=== PATIENT | female | born 1940 | race Caucasian/White ===

== ENCOUNTER 2016-10-18 15:46 | Inpatient (IN) | payer OTHER ==
[~2016-10-18] VITALS: Ht 154.9 cm; Wt 118.4 kg
--- NOTE | ~2016-10-18 | PLAN ---
[facility] [place] [address] REHAB UNIT PLAN OF CARE Name: LEATHA JAIMES Room #: 510-P ADM IN M.R.#: [id number] Admission: 10/18/16 Attend Phys: López Gomez MD Discharge: Date of : 40 Report #: [id number] THIS REPORT FOR: //name// CC: López Dominguezothy Oskar The patient is seen back today in followup. She is in no distress. Temperature 98, pulse 75, respirations 24, and blood pressure 153/69. The patient continues to need significant O2, currently 8 liters. She does not have any calf swelling. We are working with her in therapies. Transfers are standby assistance. She is ambulating 12-20 feet contact guard assistance without a device. In occupational therapy, upper body dressing's supervision, lower body is min assist. We are working on gradually improving her strength and endurance. ASSESSMENT: 1. Pulmonary rehabilitation. 2. Chronic obstructive pulmonary disease exacerbation. 3. Exogenous obesity. 4. Acute respiratory failure, superimposed on chronic respiratory failure. 5. Bronchitis. 6. Functional mobility and activities of daily living deficits. PLAN: The overall plan of care is based on the preadmission screen, post-admission physician evaluation and information garnered from therapy assessments. 1. Estimated length of stay is probably at least 7-10 days and likely longer as warranted. A lot of it depends upon her medical stability issues and pulmonary medicine involvement. 2. Medical prognosis is reasonably good. 3. Anticipated interventions includes the interdisciplinary acute inpatient rehabilitation program. 4. Anticipated functional outcomes would be for the patient to become modified independent with transfers, mobility and ADLs with the hopes of having return back to the home setting. Ideally, she will further improve as well from the pulmonary perspective. 5. Discharge destination would be back to the home setting where she lives in a house alone. There is a son and aggnrdyn-vq-zcm the area. 6. Expected therapy by discipline includes PT and OT 1 and 1-1/2 hours per day. Each five days a week throughout the duration of the acute inpatient rehabilitation stay. <ELECTRONICALLY SIGNED> By: López Gomez MD 10/27/16 1539 1443 [id number] López Gomez MD /nt
--- NOTE | ~2016-10-18 | H ---
[facility] [place] [address] [place] [address] HISTORY AND PHYSICAL Name: LEATHA JAIMES Room #: 510-P [facility] IN M.R.#: [id number] Admission: 10/18/16 Attend Phys: López Gomez MD Discharge: Date of : 40 Report #: [id number] THIS REPORT FOR: //name// CC: López Schmitt DATE OF SERVICE: 10/19/2016 HISTORY OF PRESENT ILLNESS: The patient is a 76-year-old white female originally admitted with increased shortness of air, was noted to have COPD exacerbation with bronchitis, acute respiratory failure superimposed on chronic respiratory insufficiency. She has a history of morbid obesity. She was noted to have increased O2 needs and was needing close followup by pulmonary medicine. She was noted to need pulmonary rehabilitation and close monitoring by pulmonary medicine and has been admitted now for acute in-hospital inpatient interdisciplinary rehabilitation. PAST MEDICAL HISTORY: Includes left knee surgery 06/2012, laparoscopic. She has had COPD and arthritis. MEDICATIONS: Please see the full medication listing. Each of these was individually reconciled on admission. HABITS: Former tobacco use. No history of alcohol use. SOCIAL HISTORY: Lives in a house alone, was modified independent, no device used, 3 liters nasal prong O2 premorbidly. There is a son and sgtktjqi-yn-hrh in area and the son works. ALLERGIES: No known drug allergies. REVIEW OF SYSTEMS: She does have shortness of breath with limited activity. Has complaints of generalized overall weakness. No complaints of chest pain or abdominal discomfort. No focal extremity pain complaints. PHYSICAL EXAMINATION: GENERAL: A 76-year-old obese white female, in no obvious distress. She was on 8 liters nasal prong O2. Facies were symmetric, sleepy, but would easily arouse. VITAL SIGNS: Last recorded temperature 36.7, pulse 75, respirations 20, and blood pressure 141/66. The patient was seen earlier. HEENT: Appeared to be benign. CHEST: Decreased diffuse breath sounds. CARDIAC: Sounded regular rate and rhythm. ABDOMEN: Bowel sounds positive, nontender. GENITOURINARY: Deferred. [facility] [address] [place] [address] HISTORY AND PHYSICAL Name: FIONALEATHA K Room #: 510-P [facility] IN ..#: [id number] Admission: 10/18/16 Attend Phys: López Gomez MD Discharge: Date of : 40 Report #: [id number] RECTAL: Deferred. EXTREMITIES: She has functional range of motion of both upper extremities. Strength is a grade 4-/5. Lower extremities, functional range of motion, strength grade 4-/5. No focal calf swelling. She has been able to ambulate a short distance with contact guard approximately 20 feet without a device. Again, she is using significant increase in oxygen compared to premorbid. ASSESSMENT: A 76-year-old white female with the following problem list: 1. Pulmonary rehabilitation. 2. Chronic obstructive pulmonary disease exacerbation. 3. Exogenous obesity. 4. Acute respiratory failure superimposed on chronic respiratory failure. 5. Bronchitis. 6. Functional mobility and activities of daily living deficits. 7. Prior medical history otherwise as noted above. PLAN: The patient is admitted for acute in-hospital inpatient rehabilitation. From a post admission physician evaluation perspective, there are no relevant changes since the preadmission screening. Please see the above review of prior and current medical and functional conditions and comorbidities. Please see the patient's prior and current functional status. As far as risk of complications, the patient has multiple medical comorbidities as noted above. The initial plan of care involves the interdisciplinary acute inpatient rehabilitation program with the goal of maximizing the patient's functional independence, so she can hopefully return back to her prior living situation. Goals would be for her to decrease her oxygen needs, improve functional gait, mobility, endurance and independence. Her prognosis is reasonably good with estimated length of stay probably at least 7-10 days and likely longer as warranted. Pulmonary medicine will continue to follow as she does need close involvement with her significant pulmonary comorbidities. She will be involved in the interdisciplinary acute inpatient rehabilitation program. <ELECTRONICALLY SIGNED> By: López Gomez MD 10/27/16 1537 [id number] 1421 López Gomez MD /nt
--- NOTE | ~2016-10-18 | EKG ---
[address] [place] [address] ELECTROCARDIOGRAM REPORT Name: LEATHA JAIMES Room #: 510-[facility] IN M.R.#: [id number] Admission: 10/18/16 Attend Phys: López Gomez MD Discharge: 10/30/16 Date of : 40 Report #: [id number] THIS REPORT FOR: //name// [facility] Test Date: 2016-10-30 Test Time: 19:29:40 Pat Name: LEATHA JAIMES Department: Room: 510 Gender: F General Operations Agent: Naomie BRICE : 1940 Requested By: Laura Thomas Order Number: [id number] MD: Arnaldo Bran Measurements Intervals [place] Rate: 98 P: 64 SC: 158 QRS: 52 QRSD: 89 T: 58 QT: 348 QTc: 445 Interpretive Statements Sinus rhythm Borderline low voltage, extremity leads Minimal ST depression Baseline wander in lead(s) V1 Compared to ECG 10/11/2016 10:20:46 No significant changes Electronically Signed On 11-03-2016 12:46:52 CDT by Arnaldo Bran [email or web address] <ELECTRONICALLY SIGNED> By: Arnaldo Bran MD 11/03/16 1246 28 28 Arnaldo Bran MD /EPI
--- NOTE | ~2016-10-18 | HC ---
[facility] [place] [address] CONSULTATION Name: LEATHA JAIMES Room #: 510-P [facility] IN M.R.#: [id number] Admission: 10/18/16 Attend Phys: López Gomez MD Discharge: Date of : 40 Report #: [id number] THIS REPORT FOR: //name// CC: López Schmitt NEUROBEHAVIORAL STATUS EXAM HISTORY OF PRESENT ILLNESS: The patient is a 76-year-old female admitted to the rehab unit at [facility] for comprehensive inpatient rehabilitation program. The patient was admitted following an exacerbation of COPD, bronchitis, and acute respiratory failure superimposed on chronic respiratory insufficiency. Her diagnostic impression at admission includes COPD exacerbation, exogenous obesity, acute respiratory failure, bronchitis, functional mobility and activities of daily living deficits, and prior left knee surgery on 06/25/2012. A complete description of her medical condition and history can be found in her medical records. Neuropsychological consultation was requested to provide assistance in the assessment of cognitive and emotional status and to provide recommendations and services. Prior to this most recent medical event, she was living independently in her own home. She has 1 son. The patient is a retired teacher. She has a Master degree. Her son and crsqwjgu-wj-njc are very supportive. They live in [place]. There is no reported history of alcohol or drug abuse. No prior treatment for depression or anxiety is reported. TECHNIQUES UTILIZED: Clinical interview, review of medical records, staff consultation and behavioral observation, family interview-son and wocuwyvk-ft-dcn, mini mental status exam 2 standard version, clock drawing and verbal fluency assessment (letter and category). EXAMINATION FINDINGS: The patient was alert and cooperative with the assessment. She accurately described events surrounding her admission. There is no evidence of aphasia. Her thoughts are logical and goal oriented. There is no evidence of thought disorder. She does not describe auditory or visual hallucinations. She is described as having been alert and oriented. There is no reported period of delirium. Her symptoms are reported to include sleep disturbance, it is longstanding, tiredness and fatigue during the day or her behavior being more sedentary. The patient reports subjective difficulty with anxiety, memory, and word finding. Her performance on the MMSE 2 brief version is within normal limits with a raw score of 15 of 16. Her performance on the MMSE 2 standard version is within normal limits with a raw score 26 and a T score of 43. The patient was 2/3 for immediate recall of 3 items after a brief time delay and distraction. She was 2/5 for serial 7's. She was able to draw [place] [address] CONSULTATION Name: LEATHA JAIMES Room #: 510-P [facility].#: [id number] Admission: 10/18/16 Attend Phys: López Gomez MD Discharge: Date of : 40 Report #: [id number] the hands at a designated time. Additionally, she was able to copy a simple geometric design and write a sentence. Letter fluency was in the mild range of impairment with a raw score of 27, T score of 37 and percentile rank of 10. Category fluency was in the borderline range with a T score of 32 and a percentile rank of 4. DIAGNOSTIC IMPRESSION: Mild neurocognitive disorder, due to medical etiology, without behavior disorder. Anxiety disorder, unspecified. RECOMMENDATIONS: The patient is likely having increased anxiety as a result of her medical condition. She is presenting with variability in cognition specifically in thought organization, attention and concentration and subtle in memory deficits that is associated with her medical condition. The patient is reported to have been driving. It is likely that she should discontinue driving in order to maintain safety. Follow up neuropsychological testing after her discharge will help clarify neurocognitive strengths and weaknesses. She would benefit from compensatory strategies for attention, concentration, and thought organization in regard to planning and problem solving. Relaxation techniques to help manage anxiety are also indicated. Assistance in the management of medications initially upon her return home in order to ensure safety. Thank you very much for allowing me to provide the consultation on this patient. <ELECTRONICALLY SIGNED> By: Jameson Ramirez, PhD 10/26/16 1727 1418 2113 Jameson Ramirez, PhD /nt
--- NOTE | ~2016-10-18 | D ---
[facility] [place] [address] [place] [address] DISCHARGE SUMMARY Name: LEATHA JAIMES Room #: 510-P [facility] IN M.R.#: [id number] Admission: 10/18/16 Attend Phys: López Gomez MD Discharge: 10/30/16 Date of : 40 Report #: [id number] THIS REPORT FOR: //name// CC: López Schmitt DATE OF SERVICE: 10/30/2016 HISTORY OF PRESENT ILLNESS: The patient is a 76-year-old white female originally admitted to [facility] with increased shortness of air, was noted to have COPD exacerbation with bronchitis, acute respiratory failure superimposed on chronic respiratory insufficiency. She has a history of morbid obesity. She was admitted to the acute inpatient rehab apple for pulmonary rehabilitation. Please see the full admission note dictation. HOSPITAL COURSE: She was followed closely by pulmonary medicine as well as internal medicine while she was on the rehab apple. She did require one episode of IV corticosteroids, which was then tapered back to p.o. She did improve from 8 liters nasal prong O2 at rest to 6 liters at rest, but was still needing 8-10 liters with activity. Continued with pulmonary toilet. She was able to transfer with supervision, gait with standby assistance 125 feet with a front-wheeled walker, for which she was needing 10 liters of oxygen. Lower extremity dressing was min assist. She unfortunately had an episode on 10/30/2016 with increased shortness of breath. ABGs were noted to be poor. She was placed back on IV corticosteroids and was transferred off the acute rehab apple. ASSESSMENT: 1. Pulmonary rehabilitation. 2. Acute on chronic respiratory failure. 3. Chronic obstructive pulmonary disease exacerbation. 4. Exogenous obesity. 5. Bronchitis. 6. Functional mobility and ADL deficits. DISCHARGE MEDICATIONS: Please see the full discharge medication list. Discharge activity and further orders are as per the accepting service. <ELECTRONICALLY SIGNED> By: López Gomez MD 11/06/16 1455 0839 0853 López Gomez MD /nt
[~2016-10-18 15:46] MED LIST: ACETAMINOPHEN325 M1 PO; ADVAIR 250-501 EACH INH; ALBUTEROL2.5 MG/0.1 IH; ATIVAN1 MG PO; AVELOX400 MG PO; DOXYCYCLINE 10100 MG PO; FISH OIL 1,0001 EAC5 PO; GLUCOSAMINE HC500 MG PO; LEVAQUIN 500 M500 M1 PO; MUCINEX600 MG PO; NORCO 5-325 TA1 EACH PO; PREDNISONE 1 MG1 M1; PREDNISONE 10 M10 M1; PREDNISONE 10 M10 MG PO; PREDNISONE 20 M20 MG PO; PREDNISONE 5 MG5 M1 PO; PROAIR HFA8.5 GM INH; SPIRIVA INH; SPIRIVA18 MCG INH; SYMBICORT160 MCG/4. INH; XOPENEX0.63 MG/3 INH
[2016-10-18 18:30] VITALS: BP 103/75
[2016-10-19 05:11] LABS: HEMATOCRIT 37.3 % (37.0-47.0); HEMOGLOBIN 12.1 gm/dL (12.0-15.0); MCH 29.9 pg (26.0-34.0); MCHC 32.6 g/dL (28.0-37.0); MCV 91.9 fL (80.0-100.0); RBC 4.06 mil/uL (4.20-5.00); RDW 13.2 % (10.5-14.5); WBC 8.7 thou/uL (4.0-11.0)
[2016-10-19 05:14] LABS: CALCIUM 8.7 mg/dL (8.5-10.1); CREATININE 0.8 mg/dL (0.6-1.3); POTASSIUM 4.3 mmol/L (3.5-5.1)
[2016-10-19 05:22] VITALS: BP 141/66
[2016-10-19 16:00] VITALS: BP 155/83
[2016-10-20 04:41] VITALS: BP 153/69
[2016-10-20 08:00] VITALS: BP 143/64
[2016-10-20 15:51] VITALS: BP 108/66
[2016-10-21 03:25] VITALS: BP 154/66
[2016-10-21 16:00] VITALS: BP 127/57
[2016-10-22 08:42] VITALS: BP 135/65
[2016-10-22 15:51] VITALS: BP 140/52
[2016-10-23 05:05] VITALS: BP 144/63
[2016-10-23 06:13] LABS: HEMATOCRIT 35.5 % (37.0-47.0); HEMOGLOBIN 11.7 gm/dL (12.0-15.0); MCHC 32.9 g/dL (28.0-37.0); MCV 91.1 fL (80.0-100.0); RBC 3.9 mil/uL (4.20-5.00); RDW 12.8 % (10.5-14.5); WBC 8.8 thou/uL (4.0-11.0)
[2016-10-23 06:41] LABS: ALBUMIN 2.8 g/dL (3.4-5.0); CALCIUM 8.7 mg/dL (8.5-10.1); CREATININE 0.8 mg/dL (0.6-1.3); PHOSPHORUS 4.2 mg/dL (2.5-4.9); POTASSIUM 4.6 mmol/L (3.5-5.1)
[2016-10-23 16:00] VITALS: BP 151/65
[2016-10-24 05:35] VITALS: BP 142/58
[2016-10-25 03:41] VITALS: BP 148/67
[2016-10-25 16:10] VITALS: BP 129/60
[2016-10-26 04:09] VITALS: BP 126/61
[2016-10-26 15:45] VITALS: BP 141/91
[2016-10-27 03:06] VITALS: BP 124/66
[2016-10-27 15:21] VITALS: BP 153/69
[2016-10-28 05:43] VITALS: BP 140/61
[2016-10-28 16:08] VITALS: BP 115/59
[2016-10-29 05:14] VITALS: BP 119/44
[2016-10-29 15:30] VITALS: BP 144/60
[2016-10-30 04:00] VITALS: BP 121/51
[2016-10-30 15:44] VITALS: BP 124/58
[2016-10-30 19:35] LABS: ABG SAMPLE TYPE ARTERIAL; BE(vivo) 7.8 mmol/L (-2 to +3); HCO3 36.6 mmol/L (22.0-26.0); LACTATE 1.62 mmol/L (0.5-2.0); O2(CT) 16.3 mL/dL (15.0-23.0); O2Hb 90.3 % (92.0-98.0); PO2 67.6 mmHg (80.0-100.0); tCO2 38.9 mmol/L (24.0-30.0)
[2016-10-30 19:36] LABS: PCO2 74.1 mmHg (35.0-45.0); pH 7.312 (7.360-7.450)
[2016-10-30 19:37] LABS: STICK SITE R.RADIAL
[2016-10-30 20:35] VITALS: BP 176/85
== END 2016-10-30 22:09 | disposition home or self-care (01) | DRG 189 ==
PROVIDERS: Hospitalist; Physical Medicine & Rehabilitation
PROC: 5A09357 Assistance with Respiratory Ventilation, Less than 24 Consecutive Hours, Continuous Positive Airway Pressure (ICD-10-PCS; principal; 2016-10-21)
DX: J96.21 Acute and chronic respiratory failure with hypoxia (principal); J44.1 Chronic obstructive pulmonary disease with (acute) exacerbation; Z68.42 Body mass index [BMI] 45.0-49.9, adult; E66.09 Other obesity due to excess calories; Z96.652 Presence of left artificial knee joint; G31.84 Mild cognitive impairment of uncertain or unknown etiology; F41.9 Anxiety disorder, unspecified; E66.01 Morbid (severe) obesity due to excess calories; M19.90 Unspecified osteoarthritis, unspecified site; Z60.2 Problems related to living alone; K59.00 Constipation, unspecified; G47.33 Obstructive sleep apnea (adult) (pediatric); J96.22 Acute and chronic respiratory failure with hypercapnia; B37.9 Candidiasis, unspecified; Z98.42 Cataract extraction status, left eye; Z98.41 Cataract extraction status, right eye; Z87.891 Personal history of nicotine dependence; Z98.84 Bariatric surgery status; Z79.899 Other long term (current) drug therapy
CPT/HCPCS: 10112

== ENCOUNTER 2016-10-30 20:44 | Inpatient (IN) | payer OTHER ==
[~2016-10-30] VITALS: Ht 157.5 cm; Wt 121.2 kg
--- NOTE | ~2016-10-30 | H ---
[facility] [place] [address] [place] [address] HISTORY AND PHYSICAL Name: LEATHA JAIMES Room #: 436-P ADM IN M.R.#: [id number] Admission: 10/30/16 Attend Phys: Iveth Blunt MD Discharge: Date of : 40 Report #: [id number] THIS REPORT FOR: //name// CC: Iveth Schmitt DATE OF SERVICE: 10/30/2016 ATTENDING PHYSICIAN: Iveth Blunt MD. PRIMARY CARE PHYSICIAN: Mirella Medina MD. CHIEF COMPLAINT: Shortness of breath. HISTORY OF PRESENT ILLNESS: The patient is a 76-year-old female who has chronic respiratory failure. She was just admitted here at [facility] on 10/11 for acute on chronic respiratory failure and was treated with IV steroids and Levaquin. She was followed by Pulmonary. She does have severe COPD and is normally oxygen dependent at home, wearing 3 liters. She did not improve much as far as her hypoxia during that admission and ended up getting discharged to rehab here at [facility] for further pulmonary rehab. She had been wearing 6 liters of oxygen, but they were still needing to increase her oxygen to 10 liters with any sort of activity. She does wear BiPAP every night. She denies any cough, fevers, chills, congestion, or chest pain. Today, she started having increasing shortness of breath. She said "things just did not feel right." She was having more labored breathing and her ABGs were drawn which were poor; therefore, she was transferred back to the floor and readmitted. She is currently on BiPAP. She is fully alert and able to answer questions and has no other complaints. PAST MEDICAL HISTORY: Severe oxygen dependent COPD, arthritis, obstructive sleep apnea. PAST SURGICAL HISTORY: Laparoscopic band, left knee surgery, bilateral cataracts repair. ALLERGIES: No known drug allergies. HOME MEDICATIONS: The meds that she was currently receiving on rehab were Levaquin 500 mg p.o. daily, Spiriva once daily, fish oil 1000 mg daily, Symbicort 1 puff b.i.d., glucosamine daily and prednisone 20 mg daily. SOCIAL HISTORY: The patient had been living alone prior to her last hospitalization. She is an ex-smoker, having quit at least 5 years ago after smoking for many years. She has been using a walker for ambulating at rehab, but at home she was ambulating independently. [place] [id number] HISTORY AND PHYSICAL Name: JAIMESLEATHA Room #: 436-P [facility]#: [id number] Admission: 10/30/16 Attend Phys: Iveth Blunt MD Discharge: Date of : 40 Report #: [id number] FAMILY HISTORY: She does have a twin sister who had pulmonary embolism. Her father at the age of 92 from old age. Her mother at the age of 96 from old age. REVIEW OF SYSTEMS: Prior pulmonary notes state that she has had severe COPD and last known FEV1 of 0.52 or 28% of predicted. All other 12-point review of systems was reviewed with the patient, otherwise negative unless stated in the HPI. PHYSICAL EXAMINATION: GENERAL: The patient is an alert, obese female, in no acute distress. VITAL SIGNS: Temperature is 36.4, heart rate 78, respirations 20, blood pressure is 150/70. Oxygen 97% on 40% FiO2 per BiPAP. HEENT: PERRLA. Sclerae is nonicteric. Oral mucosa is pink. NECK: Supple, no JVD noted. CARDIOVASCULAR: Normal S1, S2. No murmurs, rubs or gallops. RESPIRATORY: Breath sounds are very diminished throughout. She has a few scattered expiratory wheezes. Breathing is nonlabored with BiPAP in place. ABDOMEN: Obese, but soft and nontender with positive bowel sounds. VASCULAR: She does have 2+ bilateral lower extremity edema. Pedal pulses are 2+. NEUROLOGIC: The patient is alert and oriented x 3. She is following commands and able to move all extremities equally. No focal weakness noted. LABORATORY DATA AND DIAGNOSTICS: Her ABGs showed a pH of 7.31, pCO2 of 74.1, pO2 of 67.6 and bicarbonate of 36.6. Chest x-ray tonight showed a calcified mass in the medial left lung consistent with a granuloma similar to prior study. There is no new infiltrate, effusion or pneumothorax or acute process. There is little change from prior study. ASSESSMENT AND PLAN: 1. Acute on chronic and hypoxic respiratory failure. She did require transfer back from rehab and readmission due to her increasing oxygen needs. Her ABG is actually worse than when she was initially admitted. We will continue with BiPAP and have Pulmonary reevaluate. Continue breathing treatments and IV steroids. Check D-dimer and if elevated, check CT angio of the chest. 2. Obstructive sleep apnea. Continue with BiPAP at this time. 3. Bilateral lower extremity edema. She denies any history of congestive heart failure. We will check a BNP and if elevated, diurese. 4. Morbid obesity. 5. Deep vein thrombosis prophylaxis. Start Lovenox. [facility] [address] [place] [address] HISTORY AND PHYSICAL Name: LEATHA JAIMES Room #: 436-P ADM IN ..#: [id number] Admission: 10/30/16 Attend Phys: Iveth Blunt MD Discharge: Date of : 40 Report #: [id number] We will continue to follow the patient closely throughout the hospitalization and make changes based on clinical status. By: 0725 0828 ABEL Mccullough /jac
[2016-10-30 22:28] VITALS: BP 150/70
[2016-10-31 01:43] LABS: HEMATOCRIT 37.3 % (37.0-47.0); MCHC 32.3 g/dL (28.0-37.0); MCV 92.7 fL (80.0-100.0); RBC 4.02 mil/uL (4.20-5.00); RDW 13.4 % (10.5-14.5); WBC 7.1 thou/uL (4.0-11.0)
[2016-10-31 02:09] LABS: ALKALINE PHOSPHATASE 69 U/L (46-116); ANION GAP 1 mmol/L (7-16); BUN 22 mg/dL (7-18); CALCIUM 9.5 mg/dL (8.5-10.1); CHLORIDE 101 mmol/L (98-107); CO2 40 mmol/L (21-32); CREATININE 0.7 mg/dL (0.6-1.3); GLUCOSE 174 mg/dL (70-99); MAGNESIUM 2.2 mg/dL (1.8-2.4); NT-PRO BRAIN NAT PEPTIDE 184 pg/mL (<300); POTASSIUM 5.1 mmol/L (3.5-5.1); SGOT 10 U/L (15-37); SGPT 23 U/L (30-65); SODIUM 142 mmol/L (136-145); TOTAL BILIRUBIN 0.7 mg/dL (<0.1-1.0); TOTAL PROTEIN 6.2 g/dL (6.4-8.2); TROPONIN-I < 0.04 ng/mL (<0.04-0.07)
[2016-10-31 06:50] LABS: ABG SAMPLE TYPE ARTERIAL; BE(vivo) 8.3 mmol/L (-2 to +3); HCO3 37.4 mmol/L (22.0-26.0); LACTATE 1.18 mmol/L (0.5-2.0); O2(CT) 16.5 mL/dL (15.0-23.0); O2Hb 93.4 % (92.0-98.0); PO2 76.5 mmHg (80.0-100.0); sO2 93.3 % (92.0-98.0); tCO2 39.8 mmol/L (24.0-30.0)
[2016-10-31 06:51] LABS: PCO2 77.4 mmHg (35.0-45.0); STICK SITE L.RADIAL; pH 7.302 (7.360-7.450)
[2016-10-31 06:54] LABS: Pressure Support 6 cm H20
[2016-10-31 08:09] VITALS: BP 138/63
[2016-10-31 12:17] VITALS: BP 141/56
[2016-10-31 16:35] VITALS: BP 148/63
[2016-10-31 19:06] VITALS: BP 141/59
[2016-11-01 04:35] VITALS: BP 118/49
[2016-11-01 07:38] VITALS: BP 133/53
[2016-11-01 11:40] VITALS: BP 144/52
[2016-11-01 16:15] VITALS: BP 121/59
[2016-11-01 19:10] VITALS: BP 143/51
[2016-11-02 03:30] VITALS: BP 135/47; BP 135/57
[2016-11-02 07:43] VITALS: BP 141/60
== END 2016-11-02 15:51 | DRG 189 ==
LOC: 4S 20:44
PROVIDERS: Nurse Practitioner Acute Care
PROC: 5A09357 Assistance with Respiratory Ventilation, Less than 24 Consecutive Hours, Continuous Positive Airway Pressure (ICD-10-PCS; principal; 2016-10-28)
DX: J96.21 Acute and chronic respiratory failure with hypoxia (principal); J44.1 Chronic obstructive pulmonary disease with (acute) exacerbation; Z68.42 Body mass index [BMI] 45.0-49.9, adult; J96.22 Acute and chronic respiratory failure with hypercapnia; G47.33 Obstructive sleep apnea (adult) (pediatric); E66.01 Morbid (severe) obesity due to excess calories; Z96.652 Presence of left artificial knee joint; M19.90 Unspecified osteoarthritis, unspecified site; Z60.2 Problems related to living alone; Z87.891 Personal history of nicotine dependence; Z82.49 Family history of ischemic heart disease and other diseases of the circulatory system; Z99.81 Dependence on supplemental oxygen; Z98.41 Cataract extraction status, right eye; Z98.42 Cataract extraction status, left eye; Z79.899 Other long term (current) drug therapy
CPT/HCPCS: 10100

== ENCOUNTER 2016-11-02 15:24 | Inpatient (IN) | payer OTHER ==
[~2016-11-02] VITALS: Ht 154.9 cm; Wt 115.5 kg
--- NOTE | ~2016-11-02 | H ---
[facility] [place] [address] HISTORY AND PHYSICAL Name: LEATHA JAIMES Room #: 512-P [facility] IN M.R.#: [id number] Admission: 11/02/16 Attend Phys: López Gomez MD Discharge: Date of : 40 Report #: [id number] THIS REPORT FOR: //name// CC: López Schmitt DATE OF SERVICE: 11/02/2016 HISTORY OF PRESENT ILLNESS: The patient is a 76-year-old white female with chronic respiratory failure followed by Pulmonary. She has severe chronic obstructive pulmonary disease, normal O2 dependent requiring 3 liters. She was on the acute inpatient rehab apple at [facility] and was requiring 6 liters of oxygen, but increasing her O2 to 10 liters with activity. She was wearing BiPAP every night. She began having increased shortness of breath while on rehabilitation, more labored breathing and her ABGs were noted to be poor. She was transferred back to the acute hospital apple. CT of the chest showed no PE, was doing better remaining on BiPAP at h.s., on 8 liters per minute during the day. She was not needing any daytime BiPAP. She was felt to be ready for transfer back to the acute inpatient rehabilitation apple and she thus has been admitted for interdisciplinary acute inpatient rehabilitation therapies. PAST MEDICAL HISTORY: Includes chronic obstructive pulmonary disease, O2 dependent 3 liters, left knee surgery 06/2002, laparoscopic, history of degenerative arthritis. PAST SURGICAL HISTORY: As noted above. MEDICATIONS: Please see the full medication listing. This includes her and vitamins and supplements. All were reconciled as part of her admission to the acute inpatient rehabilitation apple. HABITS: Former tobacco use. No history of ETOH usage. SOCIAL HISTORY: Lives in a house alone, was premorbidly modified independent, no device. She was on 3 liters nasal prong O2. There is a son and [id number] in the area and the son works. ALLERGIES: No known drug allergies. REVIEW OF SYSTEMS: She has the shortness of breath with some limited activity. No current complaints of chest pain or abdominal discomfort. No other focal extremity pain complaints. PHYSICAL EXAMINATION: GENERAL: A 76-year-old white female in no obvious distress. VITAL SIGNS: Last recorded temperature 98.5, pulse 98, respirations 19, blood [address] [address] HISTORY AND PHYSICAL Name: LEATHA JAIMES Room #: 512-[facility] IN [facility].#: [id number] Admission: 11/02/16 Attend Phys: López Gomez MD Discharge: Date of : 40 Report #: [id number] pressure 140/63. The patient is alert. She is pleasant. HEENT: Appeared to be benign. Cranial nerves are grossly intact. Facies are symmetric. She is currently on 6 liters nasal cannula. She was low as 5 earlier this morning. Facies appeared symmetric. She is a good historian. HEENT: Otherwise appeared benign. CHEST: Decreased breath sounds. She does have end-expiratory wheezing. CARDIOVASCULAR: Sounded regular rate and rhythm. ABDOMEN: Obese, bowel sounds positive, nontender. EXTREMITIES: She has functional range of motion of both upper extremities with strength grade 4-/5. DTRs are trace to 1. In her lower extremities, there is functional range of motion, strength is grade 4-/5. No focal calf swelling. Functionally, she is needing contact guard assistance for short distance walker ambulation. ASSESSMENT: A 76-year-old white female readmitted to the acute inpatient rehabilitation apple with the following problem list: 1. Pulmonary rehabilitation. 2. Chronic obstructive pulmonary disease exacerbation. 3. Acute respiratory failure superimposed on chronic respiratory insufficiency. 4. Bronchitis. 5. History of obstructive sleep apnea, continuing with BiPAP at h.s. 6. Morbid obesity. PLAN: The patient is admitted for acute in-hospital inpatient rehabilitation. From a postadmission physician evaluation perspective, there are no relevant changes since the preadmission screening. Please see the above review of prior and current medical and functional conditions and comorbidities. Please see the patient's prior and current functional status. As far as risk of complications, she does have multiple medical comorbidities as noted above. Initial plan of care involves the interdisciplinary acute inpatient rehabilitation program with the goal of maximizing the patient's functional independence. Prognosis is reasonably good with estimated length of stay depending upon her progress. Potential barriers would include her significant pulmonary issues and decreased functional status. We will be having the multiple technical solutions consultant physicians continue to follow while she is on the rehab apple to try to maximize her overall functional independence, so she can return back to the home setting. <ELECTRONICALLY SIGNED> By: López Gomez MD 11/06/16 1455 [id number] López Gomez MD /nt
--- NOTE | ~2016-11-02 | HC ---
[facility] [place] [address] [place] [address] CONSULTATION Name: LEATHA JAIMES Room #: 512-P [facility] IN .R.#: [id number] Admission: 11/02/16 Attend Phys: López Gomez MD Discharge: Date of : 40 Report #: [id number] THIS REPORT FOR: //name// CC: López Schmitt DATE OF SERVICE: 11/04/2016 ATTENDING PHYSICIAN: López Gomez M.D. ADHESIVE BONDING MACHINE OPERATOR: Jameson Ramirez, PhD CLINICAL PRESENTATION: The patient is a 76-year-old female admitted to the rehabilitation unit at [facility] for comprehensive inpatient rehabilitation program to improve functional mobility, activities of daily living and self-care secondary to deficits from chronic obstructive pulmonary disease exacerbation. Her assessment on admission includes pulmonary rehabilitation, acute respiratory failure, superimposed on chronic respiratory insufficiency, bronchitis, history of obstructive sleep apnea and morbid obesity. The patient was seen a complete description of her medical condition and history can be found in her medical record. Neuropsychological consultation was requested to provide assistance in the assessment of cognitive and emotional status and to provide recommendations and services. The patient was seen initially on 10/18/2016 prior to a transfer for acute medical care. She was living independently in her own home. She has 1 son. The patient is a retired teacher and also has obtained a master degree. TECHNIQUES UTILIZED: Clinical interview, review of medical records, staff consultation and behavioral observation, mini mental status exam 2 brief version. EXAMINATION FINDINGS: The patient was alert and cooperative with the assessment. There is no report of auditory or visual hallucinations. The patient does not report difficulty with sleep or appetite. She acknowledges subjective anxiety and depression. Her mood has been irritable during her rehabilitation program. She complains of a long hospitalization, which is likely contributed increasing frustration and periods of irritability and deficits in temper and mood. For functioning on the MMSE 2 brief version is within normal limits with a raw score of 16/16. She presents as alert and oriented. Patient denies problems with cognition. Sheis described as maintaining a very poor diet with ingestion of high caloric beverages and food. 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 Unspecified Anxiety Disorder with depression RECOMMENDATIONS: The patient would benefit from the use of an antidepressant medication to assist in her adjustment and management of anxiety. The use of relaxation techniques along with reassurance during therapies will also help her to manage in periods of anxiety and irritability. A dietary consultation may be of benefit to assist her nutritional managment prior to her return home. She has been very independent prior to this hospitalization and it may be difficult for her to return home withoout increasing assistance. Supportive counseling to focus on her strengths and resources along with helping heridentified particular behaviors necessary to maintain a safe discharge. Thank you very much for allowing me to provide the consultation on this patient. <ELECTRONICALLY SIGNED> By: Jameson Ramirez, PhD 11/05/16 1545 [id number] Jameson Ramirez, PhD /nt
--- NOTE | ~2016-11-02 | PLAN ---
[facility] [place] [address] [place] [address] REHAB UNIT PLAN OF CARE Name: LEATHA JAIMES Room #: 512-P [facility] IN M.R.#: [id number] Admission: 11/02/16 Attend Phys: López Gomez MD Discharge: Date of : 40 Report #: [id number] THIS REPORT FOR: //name// CC: López Schmitt DATE OF SERVICE: 11/04/2016 SUBJECTIVE AND OBJECTIVE: The patient was seen earlier. She was frustrated with some swelling with a blown IV in the dusting and brushing machine operator. The IV was removed and she was given an ice pack. Last recorded temperature was 36.3, pulse 89, respirations 18, blood pressure 142/65. No focal calf swelling. She has been standby assistance for basic transfers, gait has been standby assistance 80 feet with a 4-wheeled walker. She has been needing 6 liters nasal prong during the day. ASSESSMENT: 1. Pulmonary rehabilitation. 2. Chronic obstructive pulmonary disease exacerbation. 3. Acute respiratory failure superimposed on chronic respiratory insufficiency. 4. Bronchitis. 5. History of obstructive sleep apnea with BiPAP at bedtime. 6. Morbid obesity. PLAN: The overall plan of care is based on the preadmission screen, post-admission physician evaluation and information garnered from therapy assessments. 1. Estimated length of stay is probably a week to possibly several weeks depending upon her progress. She needs to further stabilize to the point where she can be handled in the home setting. 2. Medical prognosis is reasonably good. 3. Anticipated interventions includes the interdisciplinary acute inpatient rehabilitation program with PT and OT. Rehab nursing assisting regarding medication management, skin care prophylaxis, bowel and bladder issues and nursing education. 4. Anticipated functional outcomes would be for her to improve with her mobility and decrease her O2 needs and to improve an ADL independence. Her biggest barrier has been her pulmonary condition. 5. Discharge destination is back to the home setting. 6. Expected therapy by discipline includes PT and OT one and one-half hours per day each five days a week throughout the duration of the acute inpatient rehabilitation program. <ELECTRONICALLY SIGNED> By: López Gomez MD 11/06/16 1455 [id number] López Gomez MD /nt
[2016-11-02 16:00] VITALS: BP 140/63
[2016-11-03 05:48] VITALS: BP 143/49
[2016-11-03 08:13] VITALS: BP 154/93
[2016-11-03 14:06] VITALS: BP 154/93
[2016-11-03 16:13] VITALS: BP 157/82
[2016-11-03 19:23] LABS: CALCIUM 8.9 mg/dL (8.5-10.1); CREATININE 1.2 mg/dL (0.6-1.3); POTASSIUM 4.5 mmol/L (3.5-5.1)
[2016-11-04 05:38] VITALS: BP 142/65
[2016-11-04 16:00] VITALS: BP 147/76
[2016-11-05 03:04] VITALS: BP 135/54
[2016-11-05 14:14] VITALS: BP 126/81
[2016-11-05 16:00] VITALS: BP 125/61
[2016-11-06 04:00] VITALS: BP 150/77
[2016-11-06 09:15] VITALS: BP 140/71
[2016-11-06 16:00] VITALS: BP 164/82
[2016-11-07 05:17] VITALS: BP 136/67
[2016-11-08 05:44] VITALS: BP 124/59
[2016-11-08 07:20] VITALS: BP 141/45
[2016-11-08 16:00] VITALS: BP 134/64
[2016-11-08 20:03] VITALS: BP 108/43
[2016-11-09 06:04] VITALS: BP 114/63
[2016-11-09 09:00] VITALS: BP 148/80
[2016-11-09 16:02] VITALS: BP 146/83
[2016-11-10 05:57] VITALS: BP 132/53
[2016-11-10] MEDS ORDERED: HUMALOG100 UNIT/1 SUBQ (11:36)
[2016-11-10] MEDS ORDERED: NYSTATIN-TRIAMC15 GM TOP (11:36)
[2016-11-10] MEDS ORDERED: THEO-24100 MG PO (11:36)
[2016-11-10] MEDS ORDERED: SENNA PO (11:37)
[2016-11-10] MEDS ORDERED: MUCINEX DM TABL1 TA1 PO (11:37)
[2016-11-10 15:35] VITALS: BP 130/60
== END 2016-11-10 18:15 | DRG 190 ==
PROVIDERS: Internal Medicine Pulmonary Disease
PROC: 5A09357 Assistance with Respiratory Ventilation, Less than 24 Consecutive Hours, Continuous Positive Airway Pressure (ICD-10-PCS; principal; 2016-11-06)
DX: J44.1 Chronic obstructive pulmonary disease with (acute) exacerbation (principal); J96.21 Acute and chronic respiratory failure with hypoxia; J96.22 Acute and chronic respiratory failure with hypercapnia; Z68.42 Body mass index [BMI] 45.0-49.9, adult; G47.33 Obstructive sleep apnea (adult) (pediatric); E66.01 Morbid (severe) obesity due to excess calories; G31.84 Mild cognitive impairment of uncertain or unknown etiology; F41.9 Anxiety disorder, unspecified; Z96.652 Presence of left artificial knee joint; F32.9 Major depressive disorder, single episode, unspecified; H10.9 Unspecified conjunctivitis; M19.90 Unspecified osteoarthritis, unspecified site; Z79.899 Other long term (current) drug therapy; Z99.81 Dependence on supplemental oxygen
CPT/HCPCS: 10112